=== PATIENT | female | born 1975 | race Caucasian/White ===

== ENCOUNTER → 2018-09-03 | Outpatient (CLI) | payer BC ==
--- NOTE | 2018-09-08 18:29 | RAD ---
DATE: 09/03/2018 EXAM: MAMMO KELI SCREENING BILATERAL HISTORY: Routine screening COMPARISON: 11/03/2015 mammographic exam performed at an outside facility This study was interpreted with the benefit of Computerized Aided Detection (CAD). Breast Density: SCATTERED The breast parenchyma shows scattered fibroglandular densities. Breast parenchyma level B. FINDINGS: Asymmetry involving the right upper breast is stable. Small asymmetry at the inner right breast is stable. No suspicious new mass or distortion. Benign-appearing axillary lymph nodes are present. IMPRESSION: No suspicious finding. BI-RADS CATEGORY: 1 NEGATIVE RECOMMENDED FOLLOW-UP: 12M 12 MONTH FOLLOW-UP PQRS compliance statement: Patient information was entered into a reminder system with a target due date in one year for the next mammogram. Mammography is a sensitive method for finding small breast cancers, but it does not detect them all and is not a substitute for careful clinical examination. A negative mammogram does not negate a clinically suspicious finding and should not result in delay in biopsying a clinically suspicious abnormality. "Our facility is accredited by the [employer] Mammography [employer]."
== END | disposition home or self-care (01) ==
LOC: MAMMO 13:17
PROVIDERS: ATTEND Physician Assistant Medical
DX: Z12.31 Encounter for screening mammogram for malignant neoplasm of breast (principal)
CPT/HCPCS: 77063; 77067

== ENCOUNTER → 2020-12-11 | Outpatient (CLI) | payer BC ==
--- NOTE | 2020-12-11 12:19 | RAD ---
AP and lateral right forearm radiographs to include 3 view radiographs of the right elbow 12/11/2020 CLINICAL HISTORY: Fall yesterday with right elbow and forearm pain. AP, oblique and lateral digital radiographs of the right elbow were obtained. AP and lateral digital radiographs of the right forearm were obtained. A lucency is seen extending across the anterior aspec t of the coronoid process which may represent a nondisplaced fracture. No additional fracture is seen . No dislocation is noted. No radiopaque foreign body is seen. IMPRESSION: Lucency extends across the coronoid process of the proximal right ulna which may represen t a nondisplaced fracture. No additional fracture is seen. Electronically signed by: Juan Miguel Casanova MD (12/11/2020 12:17 PM) [id number]
== END ==
LOC: DXRAD 11:18
PROVIDERS: ATTEND Nurse Practitioner Family
DX: M79.631 Pain in right forearm (principal); M25.521 Pain in right elbow; W19.XXXA Unspecified fall, initial encounter; Y93.89 Activity, other specified; Y92.89 Other specified places as the place of occurrence of the external cause; Y99.8 Other external cause status
CPT/HCPCS: 73080; 73090

== ENCOUNTER → 2020-12-19 | Outpatient (CLI) | payer BC ==
--- NOTE | 2020-12-20 09:10 | RAD ---
EXAM: 2 views right elbow DATE: 12/19/2020 3:54 PM INDICATION: Right elbow pain. COMPARISON: 12/11/2020 FINDINGS/ IMPRESSION: Subtle lucency through the coronoid process possibly enthesophyte or nondisplaced fracture. This is s table in appearance. No elbow joint effusion. Electronically signed by: Noah Cotter MD (12/20/2020 9:08 AM) [id number]
== END ==
LOC: RAD 15:31
PROVIDERS: ATTEND Physician Assistant Medical
DX: S59.901A Unspecified injury of right elbow, initial encounter (principal); X58.XXXA Exposure to other specified factors, initial encounter; Y93.89 Activity, other specified; Y92.89 Other specified places as the place of occurrence of the external cause; Y99.8 Other external cause status
CPT/HCPCS: 73070

== ENCOUNTER → 2021-01-20 | Outpatient (CLI) | payer BC ==
--- NOTE | 2021-01-20 16:48 | RAD ---
Examination: 2 views of the right elbow and 2 views of the right forearm HISTORY: History of closed nondisplaced fracture of the head of the radius COMPARISON: 12/19/2020 Findings/ impression: The alignment of the elbow joint grossly appears unremarkable. The alignment of the radius, ulna shashank sly appears unremarkable. There is faint lucency identified in the head of the radius likely nondispl aced fracture, age indeterminate. Subtle lucency identified in the coronoid process of the ulna again notified likely fracture. No significant elbow joint effusion evident. Electronically signed by: Andrea Swartz MD (01/20/2021 4:45 PM) [id number]
== END ==
LOC: RAD 10:23
PROVIDERS: ATTEND Physician Assistant
DX: S52.124A Nondisplaced fracture of head of right radius, initial encounter for closed fracture (principal); S52.041A Displaced fracture of coronoid process of right ulna, initial encounter for closed fracture; X58.XXXA Exposure to other specified factors, initial encounter; Y93.89 Activity, other specified; Y92.89 Other specified places as the place of occurrence of the external cause; Y99.8 Other external cause status
CPT/HCPCS: 73070; 73090

== ENCOUNTER → 2021-04-11 | Outpatient (CLI) | payer BC ==
--- NOTE | 2021-04-11 13:00 | RAD ---
Bilateral digital screening mammogram to include digital breast tomosynthesis (3-D mammography) 04/11 CLINICAL HISTORY: Screening study. Digital MLO and CC mammograms of both breasts were obtained. Additionally digital breast tomosynthesi s images (3-D mammography) of both breasts in the CC and MLO projections were obtained. Comparison study is dated 09/03/2018. The breast parenchyma is heterogeneously dense which could obscure a lesion on mammography (breast de nsity C). Benign-appearing calcifications are seen within both breasts. No spiculated mass is seen. N o malignant appearing calcification or area of architectural distortion is noted. Digital breast tomosynthesis images demonstrate no spiculated mass. No malignant appearing calcificat ion is seen. Impression: BI-RADS Category 1: Negative. There is no mammographic evidence of malignancy. Routine y early screening mammography is recommended for follow-up. This examination was reviewed with the aid of computer-aided detection. A mammogram does not have 100% sensitivity and therefore a negative imaging study should not delay fu rther work up of a suspicious abnormality. Patient information is entered into the reminder system with a target due date for the next screening mammogram of 04/11/2022. "Our facility is accredited by the [employer] Mammography [employer]." Electronically signed by: Juan Miguel Casanova MD (04/11/2021 12:58 PM) [id number]
== END ==
LOC: MAMMO 10:25
PROVIDERS: ATTEND Physician Assistant Medical
DX: Z12.31 Encounter for screening mammogram for malignant neoplasm of breast (principal)
CPT/HCPCS: 77063; 77067